=== PATIENT | male | born 1965 | race African-American/Black ===

== ENCOUNTER 2017-08-05 10:23 | Emergency (ER) | payer MEDICAID ==
[~2017-08-05] VITALS: Ht 182.9 cm; Wt 137.0 kg
[2017-08-05 10:59] VITALS: BP 131/84
== END 2017-08-05 15:00 | disposition left against medical advice (07) ==
LOC: ER 11:40
DX: Z53.21 Procedure and treatment not carried out due to patient leaving prior to being seen by health care provider (principal)